=== PATIENT | female | born 1990 | race American Indian/Alaskan Native ===

== ENCOUNTER 2017-09-25 10:14 | Emergency (ER) | payer SELFPAY ==
[2017-09-25 10:26] VITALS: BP 140/92
--- NOTE | 2017-09-25 10:59 | Emergency Department Report ---
ED HPI - General Chief complaint: Vaginal Bleeding Stated complaint: VAG BLEEDING Time Seen by Provider: 09/25/17 10:33 Source: patient Mode of arrival: Ambulatory Limitations: No Limitations - History of Present Illness Initial comments: This is a 27-year-old -[place] female who presents with abdominal pain and vaginal bleeding that started 3 days ago. Patient was seen at [facility] when symptoms started on Sunday. Patient states heart rate 150 on US. They sent patient home and advised to return if symptoms return. Patient reports passing a large 5 with a moderate amount of bleeding" with 40 minutes prior to arrival. She is having low abdominal pain that is nonradiating. A2. Denies fever, lower back pain, frequency, urgency, dysuria, and vaginal discharge. MD Complaint: abdominal pain -: days(s) (3 days) Location: pelvis Radiation: none Severity: moderate Severity scale (0 -10): 6 Quality: cramping, sharp Consistency: intermittent Improves with: none Worsens with: movement Associated symptoms: vaginal bleeding, abdominal pain. denies: nausea/vomiting , vaginal discharge, dysuria, headache, vision changes, malaise, dysparuenia, rash, seizure, shortness of breath, syncope, weakness Vaginal bleeding: heavy, clots :: Yes Number of weeks : 7 OB History - Current : no complications OB History - Previous Pregnancies: miscarriage Last menstrual period: 08/04/17 Pre-mario care: followed by OB - Related Data : 5 Para: 2 Ab: 2 Previous Rx's Medication Instructions Recorded Last Taken Type metFORMIN [Glucophage] 500 mg PO BID #30 tablet 05/20/15 Unknown Rx Allergies Allergy/AdvReac Type Severity Reaction Status Date / Time No Known Allergies Allergy Verified 05/20/15 11:42 ED Review of Systems ROS: Stated complaint: VAG BLEEDING Other details as noted in HPI Constitutional: denies: chills, fever Respiratory: denies: cough, shortness of breath, wheezing Cardiovascular: denies: chest pain, palpitations Gastrointestinal: abdominal pain. denies: nausea, vomiting, diarrhea, constipation, hematochezia Genitourinary: other (vaginal bleeding). denies: urgency, dysuria, frequency, discharge Musculoskeletal: denies: back pain, joint swelling, arthralgia Neurological: denies: headache, weakness, paresthesias Psychiatric: denies: anxiety, depression ED Past Medical Hx - Past Medical History Previous Medical History?: Yes Hx Hypertension: No Hx Congestive Heart Failure: No Hx Diabetes: Yes (GESTATIONAL) Hx Deep Vein Thrombosis: No Hx Renal Disease: No Hx Sickle Cell Disease: No Hx Seizures: No Hx Asthma: No Hx COPD: No Hx HIV: No Additional medical history: OBESITY, Miscarriage x 2 - Surgical History Past Surgical History?: Yes Additional Surgical History: - Social History Smoking Status: Never Smoker Substance Use Type: Alcohol - Medications Home Medications: Home Medications Medication Instructions Recorded Confirmed Last Taken Type metFORMIN [Glucophage] 500 mg PO BID #30 tablet 05/20/15 Unknown Rx ED Physical Exam - General Limitations: No Limitations General appearance: alert, in no apparent distress - Respiratory Respiratory exam: Present: normal lung sounds bilaterally. Absent: respiratory distress - Cardiovascular Cardiovascular Exam: Present: regular rate, normal rhythm. Absent: systolic murmur, diastolic murmur, rubs, gallop - GI/Abdominal GI/Abdominal exam: Present: soft, tenderness (LLQ), normal bowel sounds - Neurological Exam Neurological exam: Present: alert, oriented X3 - Psychiatric Psychiatric exam: Present: normal affect, normal mood - Skin Skin exam: Present: warm, dry, intact, normal color. Absent: rash ED Course Vital Signs 09/25/17 10:20 Temperature 98.2 F Pulse Rate 98 H Respiratory 20 Rate Blood Pressure 140/92 O2 Sat by Pulse 96 Oximetry ED Medical Decision Making - Lab Data Result diagrams: 09/25/17 11:00 09/25/17 11:00 - Radiology Data Radiology results: report reviewed ULTRASOUND OB LESS THAN 14 WEEKS FETUS ULTRASOUND OB TRANSVAGINAL HISTORY: Vaginal bleeding, 7 weeks gestation. COMPARISON: None. TECHNIQUE: Transabdominal and transvaginal ultrasound with color doppler interrogation. FINDINGS: Uterus: The uterus measures 10 x 6 x 6 cm. No uterine mass is identified. Endometrium: An intrauterine gestational sac containing a pole and yolk sac is identified in the lower uterine segment/cervical canal. No heart rate could be documented. Right ovary: Not visualized. Left ovary: Not visualized. No pelvic fluid or mass is identified. Normal color doppler interrogation. IMPRESSION: demise. Impending is suspected. - Medical Decision Making This is a 27 y.o. female presents with vaginal bleeding and lower abdominal pain for 3 days. Patient was examined by me. Vital signs are normal. Obtained CBC, CMP, hCG qual and quant, and transvaginal and OB US. Labs are unremarkable, ultrasound demise. Impending is suspected. Suspected threatened miscarriage, repeat serum hCG quant and ultrasound in 24- 48 hours. Follow-up with [facility]. Patient informed of results and plan discussed with patient and partner. Patient discharged home in stable condition. Follow up with [facility] in 24-48 hours. Critical care attestation.: If time is entered above; I have spent that time in minutes in the direct care of this critically ill patient, excluding procedure time. ED Disposition Clinical Impression: Threatened miscarriage in early , Vaginal bleeding affecting early , Abdominal pain affecting Disposition: DC-01 TO HOME OR SELFCARE Is pt being admited?: No Does the pt Need Aspirin: No Condition: Stable Instructions: Threatened Miscarriage (ED) Additional Instructions: Have repeat serum hCG quat and ultrasound in 24-48 hours. Serum hcg quat is 7073 on visit. Follow-up with [facility] in 24-48 hours. Referrals: [facility] [Provider Group] - 3-5 Days [facility] [Provider Group] - 3-5 Days Time of Disposition: 12:59 Print Language: DOMINICAN
[2017-09-25 11:28] LABS: Basophils # (Auto) 0.1 K/mm3 (0.0-0.1); Basophils % (Auto) 1.3 % (0.0-1.8); Eosinophils % (Auto) 0.4 % (0.0-4.3); Hemoglobin 13.1 gm/dl (10.1-14.3); Lymphocytes # (Auto) 3.5 K/mm3 (1.2-5.4); Lymphocytes % (Auto) 33.2 % (13.4-35.0); Mean Corpuscular HGB Conc 34 % (30-34); Mean Corpuscular Hemoglobin 29 pg (28-32); Mean Corpuscular Volume 87 fl (79-97); Monocytes # (Auto) 0.9 K/mm3 (0.0-0.8); Monocytes % (Auto) 8.4 % (0.0-7.3); Platelet Count 218 K/mm3 (140-440); Red Blood Count 4.48 M/mm3 (3.65-5.03); Red Cell Distribution Width 12.6 % (13.2-15.2)
[2017-09-25 11:49] LABS: Alanine Aminotransferase 16 units/L (7-56); Albumin 3.9 g/dL (3.9-5); BUN/Creatinine Ratio 23; Blood Urea Nitrogen 9 mg/dL (7-17); Calcium 8.8 mg/dL (8.4-10.2); Hemolysis Index 4
--- NOTE | 2017-09-25 12:47 | Ultrasound Report ---
ULTRASOUND OB LESS THAN 14 WEEKS FETUS ULTRASOUND OB TRANSVAGINAL HISTORY: Vaginal bleeding, 7 weeks gestation. COMPARISON: None. TECHNIQUE: Transabdominal and transvaginal ultrasound with color doppler interrogation. FINDINGS: Uterus: The uterus measures 10 x 6 x 6 cm. No uterine mass is identified. Endometrium: An intrauterine gestational sac containing a pole and yolk sac is identified in the lower uterine segment/cervical canal. No heart rate could be documented. Right ovary: Not visualized. Left ovary: Not visualized. No pelvic fluid or mass is identified. Normal color doppler interrogation. IMPRESSION: demise. Impending is suspected.
== END 2017-09-25 13:07 | disposition home or self-care (01) ==
LOC: ED 10:14
DX: O20.0 Threatened abortion (principal); Z3A.01 Less than 8 weeks gestation of pregnancy
CPT/HCPCS: 36415; 76801; 76817; 80053; 84702; 84703; 85025; 99284